=== PATIENT | male | born 1955 | race Caucasian/White ===

== ENCOUNTER → 2023-10-23 08:16 | Outpatient (CLI) | payer OTHER, SELFPAY | LOC: RESP 08:17 | PROVIDERS: PCP Nurse Practitioner Family; Referring Provider Internal Medicine Critical Care Medicine; Visit Provider Internal Medicine Critical Care Medicine | DX: J44.9 Chronic obstructive pulmonary disease, unspecified (principal) | CPT/HCPCS: 94060; 94726; 94729 ==